=== PATIENT | female | born 1995 | race African-American/Black ===

== ENCOUNTER → 2016-09-01 | Outpatient (CLI) | payer OTHER | LOC: WI 09:45 | PROVIDERS: ATTEND Physician Assistant | DX: N63 Unspecified lump in breast (principal) | CPT/HCPCS: 76642 ==

== ENCOUNTER 2019-02-06 13:53 | Emergency (ER) | payer OTHER ==
[2019-02-06 13:58] VITALS: BP 125/67
--- NOTE | 2019-02-06 14:20 | ER Document Report ---
HPI - HPI Patient complains to provider of: left knee pain Time Seen by Provider: 02/06/19 14:12 Onset: Other Onset/Duration: Persistent Quality of pain: Achy Context: This 23-year-old female presents emergency department with complaints of left knee pain. Reports she had it on the bed in October and then again in December. She reports anterior knee pain that radiates up to her thigh. She went to the [facility] where they put a bandage on it. She reports nobody did x-rays. She reports still having pain. She does not take any Tylenol Motrin for the pain because she does not like any medications. Associated Symptoms: None Exacerbated by: Denies Relieved by: Denies Similar symptoms previously: Yes Recently seen / treated by doctor: Yes Past Medical History - General Information source: Patient Last Menstrual Period: Current - Social History Smoking Status: Unknown if Ever Smoked Cigarette use (# per day): No Occupation: [employer] Family History: None Patient has suicidal ideation: No Patient has homicidal ideation: No - Medical History Medical History: Negative Surgical Hx: Negative Vertical Provider Document - CONSTITUTIONAL Agree With Documented VS: Yes Exam Limitations: No Limitations General Appearance: WD/WN, No Apparent Distress - INFECTION CONTROL TRAVEL OUTSIDE OF THE [place] IN LAST 30 DAYS: No - HEENT HEENT: Atraumatic, Normocephalic - NECK Neck: Supple - RESPIRATORY Respiratory: No Respiratory Distress - CARDIOVASCULAR Cardiovascular: Regular Rate - MUSCULOSKELETAL/EXTREMETIES Musculoskeletal/Extremeties: MAEW, FROM, Non-Tender - No obvious swelling no erythema no warmth no pain with palpation to the left knee - NEURO Level of Consciousness: Awake, Alert, Appropriate Motor/Sensory: No Motor Deficit - DERM Integumentary: Warm, Dry Adult Front & Back Diagram: 1 - Patient presents with complaints to the left knee radiates up into her left thigh. Course - Re-evaluation Re-evalutation: 02/06/19 14:18 23-year-old female presents emergency department with chronic knee pain since October. Reports she bumped it on a bed at work in October and in December is still perry ving pain on the knee. She did go to [place] to [facility] but no x-rays were done. Dictation of this chart was performed using voice recognition software; therefore, there may be some unintended grammatical errors. 02/06/19 17:51 Knee X-Ray 02/06/19 14:14 IMPRESSION: NEGATIVE STUDY OF THE LEFT KNEE. NO EXPLANATION FOR PAIN. - Vital Signs Vital signs: Temp Pulse Resp BP Pulse Ox 98.4 F 91 16 125/67 97 02/06/19 13:57 02/06/19 13:57 02/06/19 13:57 02/06/19 13:57 02/06/19 13:57 - Diagnostic Test Radiology reviewed: Image reviewed, Reports reviewed Discharge - Discharge Clinical Impression: Left knee pain Qualifiers: Chronicity: unspecified Qualified Code(s): M25.562 - Pain in left knee Condition: Stable Disposition: HOME, SELF-CARE Instructions: Acetaminophen, Ice & Elevation ([facility]) Additional Instructions: *You have been evaluated for left knee pain *Rest/Ice/Elevate *Follow up with orthopedics for continued pain *Take Tylenol or Motrin as indicated for pain *Return to ED for worsening condition, changes, needs Referrals: LIYAH ENGEL PA-C [NO LOCAL MD] - Follow up in 1 week
--- NOTE | 2019-02-06 15:32 | RADIOLOGY REPORT (SQ) ---
EXAM DESCRIPTION: KNEE LEFT 4 VIEW COMPLETED DATE/TIME: 02/06/2019 2:58 pm REASON FOR STUDY: pain COMPARISON: None. NUMBER OF VIEWS: Four views. TECHNIQUE: AP, lateral, and both oblique radiographic images acquired of the left knee. LIMITATIONS: None. FINDINGS: MINERALIZATION: Normal. BONES: No acute fracture or dislocation. No worrisome bone lesions. No significant osteophytes. JOINT: No effusion. No chondrocalcinosis. OTHER: No other significant finding. IMPRESSION: NEGATIVE STUDY OF THE LEFT KNEE. NO EXPLANATION FOR PAIN. TECHNICAL DOCUMENTATION: JOB ID: [id number] [employer]- All Rights Reserved Reading location - IP/workstation name: [email or web address]
== END 2019-02-06 15:28 | disposition home or self-care (01) ==
LOC: ER 13:53
DX: M25.562 Pain in left knee (principal); G89.29 Other chronic pain; W22.03XA Walked into furniture, initial encounter; Y99.0 Civilian activity done for income or pay
CPT/HCPCS: 99283